=== PATIENT | female | born 1945 | race Caucasian/White ===

== ENCOUNTER → 2017-11-17 | Outpatient (CLI) | payer MEDICARE, OTHER ==
--- NOTE | 2017-11-17 17:32 | Diagnostic Imaging Report ---
EXAM: Bilateral screening mammogram 2D views with tomosynthesis The current study was also evaluated with a Computer Aided Detection (CAD) system. INDICATION: Screening. No current complaints stated on the questionnaire. COMPARISON: 11/06/2016. FINDINGS: The breasts are composed of scattered fibroglandular densities. Numerous calcifications are seen bilaterally. There is slight increase in calcification group seen in the outer aspect of the left breast with question of underlying architectural distortion. The right breast is stable. IMPRESSION: Compression magnification views to evaluate slightly increased calcifications and architectural distortion in the outer aspect of the left breast are seen. Ultrasound is also recommended. BI-RADS 0. ACR BI-RADS Category 0: Incomplete. (Needs additional imaging evaluation). Result letter will be mailed to the patient. Note: At least 10% of breast cancer is not imaged by mammography. Dictated by: Dictated on workstation # [id number]
== END ==
LOC: RAD 11:28
PROVIDERS: ATTEND Family Medicine
DX: Z12.31 Encounter for screening mammogram for malignant neoplasm of breast (principal)
CPT/HCPCS: 77067

== ENCOUNTER → 2017-11-24 | Outpatient (CLI) | payer MEDICARE, OTHER ==
--- NOTE | 2017-11-24 20:27 | Diagnostic Imaging Report ---
Left breast ultrasound. INDICATION: Asymmetry along the outer aspect of the left breast with questionable architectural distortion and calcifications seen. FINDINGS: The four quadrants and retroareolar region of the left breast were scanned with no underlying abnormality seen. IMPRESSION: Negative study. The calcifications seen in the outer aspect of the left breast are probably benign. There is no definite lesion seen in the area of questionable architectural distortion. A 6-month follow-up mammogram to ensure stability or resolution is recommended. ACR BI-RADS Category 3: Probably benign findings. Dictated by: Dictated on workstation # [id number]
--- NOTE | 2017-11-24 20:48 | Diagnostic Imaging Report ---
EXAM: Left breast diagnostic mammogram with tomography evaluation. The current study was also evaluated with a Computer Aided Detection (CAD) system. INDICATION: Calcifications in the outer aspect of the left breast and question of architectural distortion. FINDINGS: Outer left breast calcifications are associated with minimal heterogeneity and favored to be benign. There is no definite underlying lesion. There is an improved appearance of questioned architectural distortion in the outer aspect of the left breast. IMPRESSION: Likely benign calcifications in the outer aspect of the left breast and improved appearance of questioned architectural distortion in the outer aspect of the left breast. Ultrasound evaluation pending. BI-RADS 0. ACR BI-RADS Category 0: Incomplete. (Needs additional imaging evaluation). Result letter will be mailed to the patient. Note: At least 10% of breast cancer is not imaged by mammography. Dictated by: Dictated on workstation # [id number]
== END ==
LOC: RAD 10:56
PROVIDERS: ATTEND Family Medicine
DX: R92.1 Mammographic calcification found on diagnostic imaging of breast (principal)
CPT/HCPCS: 76641

== ENCOUNTER → 2018-05-19 | Outpatient (CLI) | payer MEDICARE, OTHER ==
--- NOTE | 2018-05-19 20:24 | Diagnostic Imaging Report ---
INDICATION: Six-month follow-up left breast calcifications. Correlation is made with mammogram from 11/24/2017 and 11/17/2017 as well as 11/06/2016. Unilateral left 2D and 3D diagnostic mammography was performed. The current study was also evaluated with a Computer Aided Detection (CAD) system. FINDINGS: Scattered fibroglandular densities are identified. The benign-appearing calcifications in the upper and outer aspect of the left breast at mid depth appear stable and likely benign. No associated soft tissue mass is seen. Left axilla is unremarkable. IMPRESSION: Stable left breast calcifications, likely benign. Follow-up diagnostic mammogram in six months is recommended to confirm stability. ACR BI-RADS Category 3: Probably benign findings. Result letter will be mailed to the patient. Note: At least 10% of breast cancer is not imaged by mammography. Dictated by: Dictated on workstation # [id number]
== END ==
LOC: RAD 12:34
PROVIDERS: ATTEND Family Medicine
DX: R92.1 Mammographic calcification found on diagnostic imaging of breast (principal)

== ENCOUNTER → 2018-11-26 | Outpatient (CLI) | payer MEDICARE, OTHER ==
--- NOTE | 2018-11-26 13:17 | Diagnostic Imaging Report ---
Indication: Six-month followup left breast calcifications. Comparison is made with a left mammogram from 05/21/2018 as well as bilateral mammogram from 11/17/2017 and 11/06/2016. 2-D and 3-D bilateral diagnostic mammography was performed with CAD. Scattered fibrotic densities are identified bilaterally. Area of parenchymal asymmetry upper outer left breast is stable. Calcifications in both breasts appear stable. No mass or malignant appearing microcalcifications are seen. Axillae are unremarkable. Impression: BI-RADS category 2 Stable bilateral mammograms without features of malignancy. Patient may return to routine annual screening mammography. ACR BI-RADS Category 2: Benign findings. Result letter will be mailed to the patient. Note: At least 10% of breast cancer is not imaged by mammography. Dictated by: Dictated on workstation # [id number]
== END ==
LOC: RAD 12:33
PROVIDERS: ATTEND Family Medicine
DX: R92.1 Mammographic calcification found on diagnostic imaging of breast (principal)
CPT/HCPCS: 77066

== ENCOUNTER → 2019-06-16 | Outpatient (CLI) | payer MEDICARE, OTHER ==
[~2019-06-16] MED LIST: CATHETER FLUSH 10 ML SYR IV PRN; REGADENOSON 0.4 MG/5 ML SYR (LEXISCAN) IV ONE
[2019-06-16 08:50] VITALS: BP 148/73
[2019-06-16 08:51] VITALS: BP 147/86
--- NOTE | 2019-06-20 12:38 | Cardiology Stress Test Report ---
Stress Test Report Type of NM Stress Test: Test Type: LEXISCAN 0.4MG/5ML Date of Procedure/Referring: Date of Procedure: Jun 16, 2019 PCP Vincent Jimenez DO Admitting Physician Vincent Jimenez DO Indications: Hypertension Baseline Heart Rate: 62 Baseline Blood Pressure: Blood Pressure Systolic: 147 Blood Pressure Diastolic: 86 Baseline EKG: Baseline EKG: sinus rhythm Summary & Conclusion: Summary: The patient was brought to the stress lab after informed consent was taken. Stress test was performed according to the Lexiscan protocol. 0.4 mg of IV Lexiscan was given. Low-grade exercise was performed. Baseline EKG showed sinus rhythm at 62 BPM. Initial blood pressure was 148/73 mmHg. Maximum heart rate was 88 bpm and blood pressure 143/76 mmHg. Patient did not have any chest pain, arrhythmias or ST segment changes during the stress test. 10.79 mCi of Myoview were given for rest imaging and 29 mCi of Myoview given for stress imaging. Transient ischemic dilatation score 0.95, EF 76 percent. Normal wall motion. Mild anterior septal reversible defect. Conclusion: Pharmacological stress test was negative for ischemia. Normal LV function with no wall motion abnormalities. Mild anterior septal reversible defect. Clinical correlation is recommended. Jos RON MD Jun 20, 2019 12:38
== END ==
LOC: CARD 07:14
PROVIDERS: ATTEND Family Medicine
DX: I10 Essential (primary) hypertension (principal); Q21.8 Other congenital malformations of cardiac septa
CPT/HCPCS: 78452; 93017

== ENCOUNTER → 2019-12-06 | Outpatient (CLI) | payer MEDICARE, OTHER ==
--- NOTE | 2019-12-06 13:38 | Diagnostic Imaging Report ---
INDICATION: Routine screening. Comparison is made with prior mammogram from 11/26/2018 and 11/17/2017. 2-D and 3-D bilateral screening mammography was performed with CAD. Scattered fibroglandular densities are identified bilaterally. Benign calcifications in both breasts are again noted. There is some motion artifact in the left breast. No mass or malignant appearing microcalcifications are seen. Asymmetry in the upper outer left breast is stable. Axillae are unremarkable. IMPRESSION: BI-RADS Category 2 No mammographic features suspicious for malignancy are identified. ACR BI-RADS Category 2: Benign findings. Result letter will be mailed to the patient. Note: At least 10% of breast cancer is not imaged by mammography. Dictated by: Dictated on workstation # [id number]
== END ==
LOC: RAD 11:21
PROVIDERS: ATTEND Family Medicine
DX: Z12.31 Encounter for screening mammogram for malignant neoplasm of breast (principal)
CPT/HCPCS: 77067

== ENCOUNTER → 2020-12-25 | Outpatient (CLI) | payer MEDICARE, OTHER ==
--- NOTE | 2020-12-25 13:50 | Diagnostic Imaging Report ---
INDICATION: Routine screening. COMPARISON: 12/06/2019 and 11/26/2018. TECHNIQUE: 2D and 3D bilateral screening mammography was performed with CAD. FINDINGS: Scattered fibroglandular densities are identified bilaterally. Benign calcifications in both breasts persist. No mass or malignant appearing microcalcifications are seen. The axillae are unremarkable. IMPRESSION: No mammographic features suspicious for malignancy are identified. ACR BI-RADS Category 2: Benign findings. Result letter will be mailed to the patient. Note: At least 10% of breast cancer is not imaged by mammography. Dictated by: Dictated on workstation # [id number]
== END ==
LOC: RAD 11:07
PROVIDERS: ATTEND Family Medicine
DX: Z12.31 Encounter for screening mammogram for malignant neoplasm of breast (principal)
CPT/HCPCS: 77063; 77067

== ENCOUNTER → 2021-06-19 | Outpatient (CLI) | payer MEDICARE, OTHER | LOC: CARD 15:00 | PROVIDERS: ATTEND Internal Medicine Cardiovascular Disease | DX: I08.0 Rheumatic disorders of both mitral and aortic valves (principal); I51.7 Cardiomegaly | CPT/HCPCS: 93306 ==

== ENCOUNTER → 2021-12-30 | Outpatient (CLI) | payer MEDICARE, OTHER ==
--- NOTE | 2021-12-30 16:54 | Diagnostic Imaging Report ---
INDICATION: Routine screening. COMPARISON: 12/25/2020 and 12/06/2019. TECHNIQUE: 2D and 3D bilateral screening mammography was performed with CAD. FINDINGS: Scattered fibroglandular densities are identified bilaterally. The overall parenchymal pattern appears stable. There are benign calcifications in both breasts. No mass or malignant-appearing microcalcifications are seen. The axillae are unremarkable. IMPRESSION: No mammographic features suspicious for malignancy are identified. ACR BI-RADS Category 2: Benign findings. Result letter will be mailed to the patient. Note: At least 10% of breast cancer is not imaged by mammography. Dictated by: Dictated on workstation # [id number]
== END ==
LOC: RAD 14:45
PROVIDERS: ATTEND Family Medicine
DX: Z12.31 Encounter for screening mammogram for malignant neoplasm of breast (principal)
CPT/HCPCS: 77063; 77067

== ENCOUNTER → 2022-11-13 | Outpatient (CLI) | payer MEDICARE, OTHER | LOC: CARD 11:15 | PROVIDERS: ATTEND Internal Medicine Cardiovascular Disease | DX: I08.0 Rheumatic disorders of both mitral and aortic valves (principal) | CPT/HCPCS: 93306 ==

== ENCOUNTER → 2023-01-08 | Outpatient (CLI) | payer MEDICARE, OTHER ==
--- NOTE | 2023-01-08 13:02 | Diagnostic Imaging Report ---
Indication: Routine screening. Comparison is made with prior mammograms from 12/30/2021 and 12/25/2020. 2-D and 3-D bilateral screening mammography was performed with CAD. Scattered fibroglandular densities are identified bilaterally. The overall breast parenchymal pattern appears to be stable. There are benign calcifications bilaterally. No mass or malignant-appearing microcalcifications are seen. Axillae are unremarkable. IMPRESSION: BI-RADS Category 2 No mammographic features suspicious for malignancy are identified. ACR BI-RADS Category 2: Benign findings. Result letter will be mailed to the patient. Note: At least 10% of breast cancer is not imaged by mammography. Dictated by: Dictated on workstation # [id number]
== END ==
LOC: RAD 11:15
PROVIDERS: ATTEND Family Medicine
DX: Z12.31 Encounter for screening mammogram for malignant neoplasm of breast (principal)
CPT/HCPCS: 77063; 77067